=== PATIENT | female | born 1985 | race Caucasian/White ===

== ENCOUNTER 2017-06-02 09:41 | Emergency (ER) | payer MEDICAID ==
[2017-06-02] MEDS ORDERED: Sodium Chloride 0.9% 1,000 ML IV ONE (10:26)
[2017-06-02] MEDS ORDERED: Ondansetron 4 MG/2 ML SDV IVPUSH ONE (10:27)
[2017-06-02] MEDS ORDERED: Ketorolac 30 MG/ML SDV IVPUSH ONE (10:27)
[2017-06-02] MEDS ORDERED: NS + KCl 20mEq/L 1,000 ML IV SCH (11:00)
[2017-06-02] MEDS ORDERED: Acetaminophen/HYDROcodone 325-5 MG Tab PO ONE (12:23)
[2017-06-02 12:39] VITALS: BP 116/62
--- NOTE | 2017-06-05 14:00 | ER ---
DATE SEEN: 06/02/2017 HISTORY OF PRESENT ILLNESS: This 31-year-old single, 6 (the patient is now, therefore, 7), para 5-1-0-5, last menstrual period 02/2017; had onset of a 3-day history of right midaxillary line 8/10 pain and right mid lateral abdominal discomfort, nonradiating to the shoulder or midepigastrium or other quadrants with associated history of feeling "dehydrated". She is experiencing intermittent diaphoresis and mild nausea and anorexia. She did eat a meal last night, small amounts, (a few bites of fried chicken), and also had yesterday's morning meal of eggs and potatoes that were fried. None of the fried foods caused abdominal discomfort. She denies fever, chills, cough, upper respiratory infection, sore throat, chest pain, diarrhea, constipation, blood in the stool, black tarry stools, frequency, urgency, or dysuria. She is sexually active and does not use contraception for protection. PAST MEDICAL HISTORY: No surgery. Previous diagnosis of interstitial cystitis. MEDICATIONS: She uses: 1. Ibuprofen. 2. Tylenol. ALLERGIES: Tramadol. SOCIAL HISTORY: Nonsmoker. Does not drink alcohol. She has a 4-month-old child at home, whom she carries mostly with left arm and left side of her body. She avoids carrying on the right side because of discomfort she experiences on the right side with any activity. She notes that she has not had trauma or unusual twisting, turning, exertion, or physical activities that could have caused muscle strain to the anterior abdomen. No history of falls. She also notes she has had a mild headache when she lies down. She has been lying in bed for the last 3 days. She denies influenza symptoms. REVIEW OF SYSTEMS: HEENT: Mild headache noted (she attributes this to lying in bed for 3 days) and also being slightly dehydrated. She highlights the fact that she feels she is dehydrated. Denies visual problems. Denies swallowing problems. Denies sore throat. No sinusitis. CARDIORESPIRATORY: Denies shortness of breath or cough, chest pain, irregular heartbeat, or lightheadedness. GI: As noted above. MUSCULOSKELETAL: Denies arthritis or joint pain, but she has had mild myalgia over the last 3 days. : Denies frequency, urgency, or dysuria. Last menstrual period was in February of 2017. NEUROLOGIC: Negative. PSYCH: Negative. PHYSICAL EXAMINATION: VITAL SIGNS: Blood pressure 122/65, heart rate 120, respirations 18, oxygen saturation 100%, and temperature is 36.4 degrees centigrade. The patient is 68.03 kg, 1.7 meters with a BMI of 27.4 kg/m2. CONSTITUTIONAL: The patient is alert, mildly overweight, in moderate distress, (she has 8/10 discomfort). HEENT: PERRLA intact. Pharynx without abnormality. NECK: No thyromegaly or mass in the neck. No cervical adenopathy. LUNGS: Clear to auscultation without rales, rhonchi, wheezes, or compromised respiration. CHEST: Chest wall nontender to palpation. HEART: S1, S2. No murmur. She has a sinus tachycardia. ABDOMEN: Soft with mild midabdominal guarding from the midclavicular line to the right anterior axillary line and especially uncomfortable - she points to the right midaxillary line flank and states her pain is "right here." Mild right-sided CVA discomfort with percussion. Pressure on other quadrants causes pain in the right middle lateral abdomen. She is without hernias, umbilical or inguinal, on palpation. EXTREMITIES: Without abnormality. Mild muscle discomfort with palpation. Deep tendon reflexes normoactive. NEUROLOGIC: Cranial nerves 2 through 12 intact. Oriented x3. Gait appropriate. Strength appropriate. Speech appropriate. Thought content appropriate. PSYCH: Negative. PELVIS: Pelvic exam performed with nurse in the room. Uterus is small and not enlarged. I am unable to clearly feel the fundus of uterus, but it is 6 to 8 cm size. Adnexa without palpable abnormality. RECTAL: Not performed. IMAGING: A quick-look ultrasound, uterus is empty. No evidence for fetoplacental unit. LABORATORY DATA: Urine: White count 14,400, PMNs 83, bands 3, lymphocytes 7. Hemoglobin 13.4. CMP: Sodium 137, potassium low at 2.7, chloride 103, CO2 of 21, BUN 10, and creatinine 0.8. BUN to creatinine ratio 12.5. Glucose 144. ALT slightly elevated at 55, alkaline phosphatase 164, albumin low at 2.6, protein 7.1. Urinalysis: Specific gravity 1.010, moderate occult blood, large leukocyte esterase, 5-10 rbc's, 40-50 wbc's, squamous cells few, many bacteria. HCG is positive. ASSESSMENT: 1. . 2. Etiology of the patient's pain, rule out ectopic , since quick- look ultrasound did not demonstrate any intrauterine fetoplacental unit. 3. Rule out renal stone. With the microhematuria, flank pain, and a history of renal stones, there possibly may be a renal stone on the right side. 4. Hypokalemia, etiology indeterminate. 5. Etiology of the patient's diaphoresis, perhaps dehydrated. The tachycardia has relented with flush of fluids, so it is very likely this is secondary to dehydration and her diaphoresis may be from same. 6. She has bandemia and neutrophilic leukocytosis. Also, appendicitis is possible, but it would be retrocecal, since it is so high, doubt this is appendicitis. 7. Mildly overweight. 8. Multiparous, 7, para 5-1-0-5 (possible ectopic presently). PLAN: The patient wants to go home to take care of her children at home and then come back for the ultrasound. The ultrasound has been scheduled for 0330 hours. She had been dismissed. Initially, she had received 300 mL of normal saline with 20 mEq of potassium chloride with the hope that she would have the entire infusion for potassium replacement but, at this point, she prefers to go home and then is willing to come back and have the procedure. She will be stopping back at the emergency room after she has completed the ultrasound to be informed of the results of the ultrasound and also consider further either surgical or medical management. She will need potassium chloride also and pain medicine, she received one tablet of hydrocodone. She noted she had hydrocodone with her previous , when she had the renal stone, and she was appreciative of having this, since she has moderate pain presently. Her pain would be very suggestive of renal stone; however she may have concurrent diagnosis of renal stone with hematuria, also has suggestion of urinary tract infection with leukocyte esterase positive. She may also have concurrent and also included in the diagnosis, but somewhat remote differential diagnosis of appendicitis. The patient was seen at about 6 to 8 minutes after arrival. /[id number] LS/MODL ADDENDUM: HISTORY: Catmagdalena's ultrasound came back at about 1730 hours (the patient went home, had something to eat, and came back). She was noted to have; the gallbladder was full of stones. The wall was thin - shrub grower noted and could not validate if this was cholecystitis because she had eaten something in the interval before coming back. Unfortunately, I had not told her not to eat anything, and she ate something. INTERVAL DIAGNOSES: 1. Urinary tract infection. Has bacteruria, many; some soiling. Treat expectantly for urinary tract infection with Keflex 500 mg one t.i.d., 15 tablets (she should be able to get by with at least 3 days of therapy, and this will give her 5 days of therapy). 2. Cholelithiasis (difficult to rule out cholecystitis, as she has had gallbladder contraction with her eating food before she had the ultrasound study). 3. Six weeks , intrauterine . PLAN: 1. Follow up with her doctor in a week. 2. See a surgeon, so the surgeon can follow her status during the , if needed. 3. To start Keflex 500 mg t.i.d., 15 tablets, for urinary tract infection. 4. She is given 12 tablets of Vicodin 1 tablet q.4 hours p.r.n. pain. She had this with previous because she had a kidney stone. 5. There is no evidence for renal stones on this study that was performed and completed approximately 15 minutes ago. /[id number] NICOLÁS/JOHAN
--- NOTE | 2017-06-05 15:15 | US ---
INDICATION: Ectopic right mid abdomen, positive test. ED quick look negative ultrasound uterus, question ectopic. Costovertebral angle percussion pain, previous history of renal stones. ABDOMEN ULTRASOUND COMPLETE: Multiple ultrasonic images revealed multiple calculi in the gallbladder. The gallbladder was not enlarged, measuring approximately 6.4 cm. No definite wall thickening is seen, although there is a slightly double wall appearance. This could represent a mild degree of chronic cholecystitis, but should be correlated clinically. There is a negative ultrasonic Arce sign noted. Calculi were mobile. No pericholecystic fluid was seen. The common bile duct was normal in caliber. Small echogenic focus at the posterior dome of the liver at the diaphragm, measuring 1.2 cm is noted, most likely representing hemangioma. No other liver lesions were suggested. Liver density appeared to be normal. The IVC was phasic. The pancreas appeared normal, as visualized, although not well seen in the area of the tail. The abdominal aorta was normal in caliber. No definite calculi were noted in the kidneys. No mass lesions were seen. On the right in the upper and mid pole area, the cortex is relatively echogenic , raising question of a process - possibly pyelonephritis in that area. This should be correlated clinically. Otherwise, the kidneys appeared unremarkable with no evidence of obstructive uropathy. The spleen measured 10.3 x 11.5 cm and was unremarkable. The right kidney measured 13.8 x 4.7 x 5.9 cm. The left kidney measured 13.4 x 4.6 x 5.8 cm. The urinary bladder was not fully distended. The wall of the urinary bladder may be somewhat thickened, raising question of cystitis. No organomegaly, mass lesions, or free fluid collections were suggested. IMPRESSION: 1. Cholelithiasis with question of a mild degree of chronic cholecystitis - correlate clinically. 2. Tiny probable hemangioma right lobe of the liver. 3. Cannot exclude the possibility of medical renal disease upper pole/mid pole area right kidney - possible pyelonephritis. 4. Somewhat thickened wall of the urinary bladder is suggested, raising question of cystitis. MTDD
--- NOTE | 2017-06-05 16:25 | US ---
INDICATION: Right lower quadrant pain, positive test, question ectopic. Need better visualization with transvaginal probe. TRANSVAGINAL PELVIC ULTRASOUND: Utilizing transvaginal probe, multiple ultrasonic images were obtained 06/02/2017. No recent comparison was available. There is an intrauterine gestation with a yolk sac visualized and an apparent pole. heart motion was suggested and documented on cine-loop with a heart rate of approximately 99 BPM suggested. [place] rump length was compatible with 5 weeks 6 days gestational age, which is markedly behind a given LMP GA of 12 weeks. ARIES by ultrasound is 01/27/2018. No adnexal mass lesions or free fluid collections were identified. The right ovary measured 2.97 x 2.5 x 1.7 cm. The left ovary measured 2.8 x 2 x 3.7 cm. Follicles are noted at the right ovary. Follicles and a 2-cm probable corpus luteum cyst are noted at the left ovary. IMPRESSION: Likely a normal IUP, very early, at 5 weeks 6 days by ultrasound, for an ARIES of 01/27/2018. Follow-up is recommended in the absence of a definite LMP. MTDD
== END 2017-06-02 12:46 | disposition home or self-care (01) ==
LOC: FB.ED 09:41
DX: O23.41 Unspecified infection of urinary tract in pregnancy, first trimester (principal); B96.89 Other specified bacterial agents as the cause of diseases classified elsewhere; K80.20 Calculus of gallbladder without cholecystitis without obstruction; O99.611 Diseases of the digestive system complicating pregnancy, first trimester; Z3A.01 Less than 8 weeks gestation of pregnancy; O99.111 Other diseases of the blood and blood-forming organs and certain disorders involving the immune mechanism complicating pregnancy, first trimester; D72.825 Bandemia; E66.3 Overweight; R51 Headache; E87.6 Hypokalemia; Z88.5 Allergy status to narcotic agent
CPT/HCPCS: 76700; 76817; 80053; 81001; 81025; 85025; 96361; 96365; 96375; 99284; A9270; J1885; J2405; J3480; J7040

== ENCOUNTER 2017-07-27 15:28 | Emergency (ER) | payer SELFPAY ==
[2017-07-27] MEDS ORDERED: Ondansetron 4 MG/2 ML SDV IVPUSH ONE (15:33)
[2017-07-27] MEDS ORDERED: Sodium Chloride 0.9% 1,000 ML IV ONE (15:33)
--- NOTE | 2017-07-27 15:39 | EDM.PDOCBH ---
ED HPI GENERAL MEDICAL PROBLEM - General Stated Complaint: SUICIDAL Time Seen by Provider: 07/27/17 15:28 Source of Information: Reports: Patient, EMS, Family (sister arrived) History Limitations: Reports: Uncooperative - History of Present Illness INITIAL COMMENTS - FREE TEXT/NARRATIVE: 31 y.o.w.sheila came to the ED by EMS 1 hour after she took obviously antifreeze and possible other substances. She told her boyfriend she took the substances who called 911. As the patient arrived here in the ed, she was not cooperative. BP 123/89 Pulse 62 RR 18 Pulse ox 98% on RA. Denied C/P, requested water, however. After a while, she said to the nurse she took some antifreeze but spit it out right away. Another time she said, she made the Antifreeze thing" but was "shooting" some drugs. Onset Date: 07/27/17 Onset Time: 14:00 Duration: Hour(s):, Waxing/Waning Location: Reports: Generalized Quality: Reports: Other (nausea, thursty) Improves with: Reports: None Worsens with: Reports: None Context: Reports: Other (Possible Antfreez intake) Associated Symptoms: Reports: No Other Symptoms - Related Data Allergies Allergy/AdvReac Type Severity Reaction Status Date / Time tramadol Allergy Nausea Verified 07/27/17 15:40 Home Meds: Home Meds Ibuprofen [IJD: Ibuprofen] 800 mg PO Q8H PRN #0 tablet 11/25/15 [Rx] Acetaminophen [Tylenol] 1,000 mg PO DAILY PRN 06/02/17 [History] Ciprofloxacin HCl [Cipro] 500 mg PO BID #20 tablet 07/27/17 [Rx] Past Medical History - Past Health History Medical/Surgical History: Denies Medical/Surgical History HEENT History: Reports: Impaired Vision Genitourinary History: Reports: Renal Calculus 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: Psychiatric History: Reports: Other (See Below) Other Psychiatric History: HYPOCHONDRIAC - Infectious Disease History Infectious Disease History: Reports: Chicken Pox Social & Family History - Family History Family Medical History: Noncontributory HEENT: Reports: None Cardiac: Reports: None Immunologic: Reports: None Oncologic: Reports: None - Tobacco Use Smoking Status *Q: Current Every Day Smoker Years of Tobacco use: 10 Packs/Tins Daily: 0.2 Used Tobacco, but Quit: No Month Tobacco Last Used: feb Second Hand Smoke Exposure: Yes - Caffeine Use Caffeine Use: Reports: Coffee, Soda - Alcohol Use Days Per Week of Alcohol Use: 0 - Recreational Drug Use Recreational Drug Use: No ED ROS GENERAL - Review of Systems Review Of Systems: Unable To Obtain (uncooperative) ED EXAM, BEHAVIORAL HEALTH - Physical Exam Exam: See Below Exam Limited By: Uncooperative General Appearance: Alert, WD/WN, No Apparent Distress Eye Exam: Bilateral Eye: Normal Inspection Ears: Normal External Exam Nose: Normal Inspection Throat/Mouth: Other (dry mucosal mmebrane) Head: Atraumatic, Normocephalic Neck: Normal Inspection, Supple, Non-Tender Respiratory/Chest: No Respiratory Distress, Lungs Clear, Normal Breath Sounds Cardiovascular: Normal Peripheral Pulses, Regular Rate, Rhythm, No Edema, No Gallop GI/Abdominal: Normal Bowel Sounds, Tender (epigastric tenderness) (Female) Exam: Deferred Rectal (Female) Exam: Deferred Back Exam: Normal Inspection, Full Range of Motion Extremities: Normal Inspection, Normal Range of Motion, Non-Tender, No Pedal Edema, Normal Capillary Refill Neurological: Alert, Normal Mood/Affect, CN II-XII Intact, Normal Cognition, No Motor/Sensory Deficits Psychiatric: Alert, Depressed Mood Skin Exam: Warm, Dry, Normal color, No rash EKG INTERPRETATION EKG Date: 07/27/17 Time: 15:55 Rhythm: NSR Rate (Beats/Min): 77 [place]: Normal P-Wave: Present QRS: Normal ST-T: Normal QT: Normal Comparison: NA - No Prior EKG COURSE, BEHAVIORAL HEALTH COMP - Course Vital Signs: Last Vital Signs Temp 36.2 C 07/27/17 15:30 Pulse 87 07/27/17 15:30 Resp 18 07/27/17 15:30 BP 140/89 07/27/17 15:30 Pulse Ox 100 07/27/17 15:30 31 y.o.w.sheila came to the ED by EMS 1 hour after she took obviously antifreeze and possible other substances. She told her boyfriend she took the substances who called 911. As the patient arrived here in the ed, she was not cooperative. BP 123/89 Pulse 62 RR 18 Pulse ox 98% on RA. Denied C/P, requested water, however. After a while, she said to the nurse she took some antifreeze but spit it out right away. Another time she said, she made up the Antifreeze thing" but was "shooting" some drugs. PE: Uncooperative 31 y.o.w.F with nl vital, Nausea, epigatric tenderness Labs: UDS pos for Amphetamines and MDMA, WBC nl BMP ll VBG pH 7.44 VBK pCO2 28 VBG HCO2 19.5 EKG: NSR Impression: Possible Anitfreeze OD by History, Dehydration, UDA pos for Amphetamines, gastritis. Tx: Zofran, NS, Protonix. 4.37 pm Consultation: Dr. Hardin, Printing Specialist: Antifreeze intake appear unlikely, given the present lab and clinical issues. UDS was pending. She will accept the for further care. Poison Contral requested a Methanol and Ethylenglycol level to be drawn and to be sent to [facility], which discussed with Dr. Hardin as well. Reexam: Pt improved, still not cooperative. Pt was put on Transport Hold at about 1700 11/24/2017 Plan: Transfer to [place] ICU Orders, Labs, Meds: Active Orders 24 hr Category Date Time Status EKG Documentation Completion [RC] ASDIRECTED Care 07/27/17 15:37 Active Saline Lock Insert [OM.PC] Routine Oth 07/27/17 15:58 Ordered EKG 12 Lead [EK] Routine Ther 07/27/17 15:37 Ordered Laboratory Tests 07/27/17 07/27/17 07/27/17 Range/Units 15:38 15:38 15:38 WBC 7.6 (4.5-12.0) X10-3/uL RBC 5.13 (3.23-5.20) x10(6)uL Hgb 13.4 (11.5-15.5) g/dL Hct 39.6 (30.0-51.3) % MCV 77.0 L (80-96) fL MCH 26.2 L (27.7-33.6) pg MCHC 34.0 (32.2-35.4) g/dL RDW 16.9 H (11.5-15.5) % Plt Count 285 (125-369) X10(3)uL MPV 9.3 (7.4-10.4) fL Neut % (Auto) 56.1 (46-82) % Lymph % (Auto) 33.4 (13-37) % [place] % (Auto) 8.8 (4-12) % Eos % (Auto) 1 (1.0-5.0) % Baso % (Auto) 0 (0-2) % Neut # (Auto) 4.3 (1.6-8.3) # Lymph # (Auto) 2.5 (0.6-5.0) # [place] # (Auto) 0.7 (0.0-1.3) # Eos # (Auto) 0.1 (0.0-0.8) # Baso # (Auto) 0.0 (0.0-0.2) # POC VBG pH (7.31-7.41) POC VBG pCO2 (41-51) mmHG POC VBG HCO3 (23-28) mmol/L POC VBG Total CO2 (24-29) mmol/L POC VBG Base Excess (-2-3) mmol/L Sodium 141 (135-145) mmol/L Potassium 3.6 (3.5-5.3) mmol/L Chloride 103 (100-110) mmol/L Carbon Dioxide 28 (21-32) mmol/L BUN 12 (7-18) mg/dL Creatinine 1.0 (0.55-1.02) mg/dL Est Cr Clr Drug Dosing TNP Estimated GFR (MDRD) > 60 (>60) BUN/Creatinine Ratio 12.0 (9-20) Glucose 97 (80-116) mg/dL Lactic Acid 0.5 (0.4-2.2) mmol/L Calcium 9.6 (8.6-10.2) mg/dL Magnesium 1.9 (1.8-2.5) mg/dL Creatine Kinase 80 (60-160) IU/L Troponin I (<0.017-0.056) ng/mL TSH, Ultra Sensitive (0.36-3.74) IU/mL Urine Color (YELLOW) Urine Appearance (CLEAR) Urine pH (5.0-6.5) Ur Specific [place] (1.010-1.025) Urine Protein (NEGATIVE) mg/dL Urine Glucose (UA) (NEGATIVE) mg/dL Urine Ketones (NEGATIVE) mg/dL Urine Occult Blood (NEGATIVE) Urine Nitrite (NEGATIVE) Urine Bilirubin (NEGATIVE) Urine Urobilinogen (NEGATIVE) mg/dL Ur Leukocyte Esterase (NEGATIVE) Urine RBC (0) Urine WBC (0) Ur Squamous Epith Cells (NS,R,O) Urine Bacteria (NS) Urine Mucus (NS) Urine HCG, Qual (NEGATIVE) Salicylates 5.1 (2.8-20.0) mg/dL Urine Opiates Screen (NEGATIVE) Ur Oxycodone Screen (NEGATIVE) Ur Propoxyphene Screen (NEGATIVE) Acetaminophen < 2 L (10-30) ug/mL Ur Barbituates Screen (NEGATIVE) Ur Tricyclics Screen (NEGATIVE) Ur Phencyclidine Scrn (NEGATIVE) Ur Amphetamine Screen (NEGATIVE) Urine MDMA Screen (NEGATIVE) U Benzodiazepines Scrn (NEGATIVE) U Cocaine Metab Screen (NEGATIVE) U Marijuana (THC) Screen (NEGATIVE) Ethyl Alcohol (<0.03) % 07/27/17 07/27/17 07/27/17 Range/Units 15:38 16:00 16:24 WBC (4.5-12.0) X10-3/uL RBC (3.23-5.20) x10(6)uL Hgb (11.5-15.5) g/dL Hct (30.0-51.3) % MCV (80-96) fL MCH (27.7-33.6) pg MCHC (32.2-35.4) g/dL RDW (11.5-15.5) % Plt Count (125-369) X10(3)uL MPV (7.4-10.4) fL Neut % (Auto) (46-82) % Lymph % (Auto) (13-37) % [place] % (Auto) (4-12) % Eos % (Auto) (1.0-5.0) % Baso % (Auto) (0-2) % Neut # (Auto) (1.6-8.3) # Lymph # (Auto) (0.6-5.0) # [place] # (Auto) (0.0-1.3) # Eos # (Auto) (0.0-0.8) # Baso # (Auto) (0.0-0.2) # POC VBG pH 7.44 H (7.31-7.41) POC VBG pCO2 28.8 L (41-51) mmHG POC VBG HCO3 19.5 L (23-28) mmol/L POC VBG Total CO2 20 L (24-29) mmol/L POC VBG Base Excess -5 L (-2-3) mmol/L Sodium (135-145) mmol/L Potassium (3.5-5.3) mmol/L Chloride (100-110) mmol/L Carbon Dioxide (21-32) mmol/L BUN (7-18) mg/dL Creatinine (0.55-1.02) mg/dL Est Cr Clr Drug Dosing Estimated GFR (MDRD) (>60) BUN/Creatinine Ratio (9-20) Glucose (80-116) mg/dL Lactic Acid (0.4-2.2) mmol/L Calcium (8.6-10.2) mg/dL Magnesium (1.8-2.5) mg/dL Creatine Kinase (60-160) IU/L Troponin I < 0.017 L (<0.017-0.056) ng/mL TSH, Ultra Sensitive 1.11 (0.36-3.74) IU/mL Urine Color (YELLOW) Urine Appearance (CLEAR) Urine pH (5.0-6.5) Ur Specific [place] (1.010-1.025) Urine Protein (NEGATIVE) mg/dL Urine Glucose (UA) (NEGATIVE) mg/dL Urine Ketones (NEGATIVE) mg/dL Urine Occult Blood (NEGATIVE) Urine Nitrite (NEGATIVE) Urine Bilirubin (NEGATIVE) Urine Urobilinogen (NEGATIVE) mg/dL Ur Leukocyte Esterase (NEGATIVE) Urine RBC (0) Urine WBC (0) Ur Squamous Epith Cells (NS,R,O) Urine Bacteria (NS) Urine Mucus (NS) Urine HCG, Qual Negative (NEGATIVE) Salicylates (2.8-20.0) mg/dL Urine Opiates Screen (NEGATIVE) Ur Oxycodone Screen (NEGATIVE) Ur Propoxyphene Screen (NEGATIVE) Acetaminophen (10-30) ug/mL Ur Barbituates Screen (NEGATIVE) Ur Tricyclics Screen (NEGATIVE) Ur Phencyclidine Scrn (NEGATIVE) Ur Amphetamine Screen (NEGATIVE) Urine MDMA Screen (NEGATIVE) U Benzodiazepines Scrn (NEGATIVE) U Cocaine Metab Screen (NEGATIVE) U Marijuana (THC) Screen (NEGATIVE) Ethyl Alcohol < 0.03 (<0.03) % 07/27/17 07/27/17 Range/Units 16:24 16:24 WBC (4.5-12.0) X10-3/uL RBC (3.23-5.20) x10(6)uL Hgb (11.5-15.5) g/dL Hct (30.0-51.3) % MCV (80-96) fL MCH (27.7-33.6) pg MCHC (32.2-35.4) g/dL RDW (11.5-15.5) % Plt Count (125-369) X10(3)uL MPV (7.4-10.4) fL Neut % (Auto) (46-82) % Lymph % (Auto) (13-37) % [place] % (Auto) (4-12) % Eos % (Auto) (1.0-5.0) % Baso % (Auto) (0-2) % Neut # (Auto) (1.6-8.3) # Lymph # (Auto) (0.6-5.0) # [place] # (Auto) (0.0-1.3) # Eos # (Auto) (0.0-0.8) # Baso # (Auto) (0.0-0.2) # POC VBG pH (7.31-7.41) POC VBG pCO2 (41-51) mmHG POC VBG HCO3 (23-28) mmol/L POC VBG Total CO2 (24-29) mmol/L POC VBG Base Excess (-2-3) mmol/L Sodium (135-145) mmol/L Potassium (3.5-5.3) mmol/L Chloride (100-110) mmol/L Carbon Dioxide (21-32) mmol/L BUN (7-18) mg/dL Creatinine (0.55-1.02) mg/dL Est Cr Clr Drug Dosing Estimated GFR (MDRD) (>60) BUN/Creatinine Ratio (9-20) Glucose (80-116) mg/dL Lactic Acid (0.4-2.2) mmol/L Calcium (8.6-10.2) mg/dL Magnesium (1.8-2.5) mg/dL Creatine Kinase (60-160) IU/L Troponin I (<0.017-0.056) ng/mL TSH, Ultra Sensitive (0.36-3.74) IU/mL Urine Color Yellow (YELLOW) Urine Appearance Cloudy (CLEAR) Urine pH 6.5 (5.0-6.5) Ur Specific [place] 1.020 (1.010-1.025) Urine Protein Negative (NEGATIVE) mg/dL Urine Glucose (UA) Normal (NEGATIVE) mg/dL Urine Ketones Negative (NEGATIVE) mg/dL Urine Occult Blood Negative (NEGATIVE) Urine Nitrite Positive H (NEGATIVE) Urine Bilirubin Negative (NEGATIVE) Urine Urobilinogen Normal (NEGATIVE) mg/dL Ur Leukocyte Esterase Negative (NEGATIVE) Urine RBC 0-5 (0) Urine WBC 0-5 (0) Ur Squamous Epith Cells Few H (NS,R,O) Urine Bacteria Many H (NS) Urine Mucus Few H (NS) Urine HCG, Qual (NEGATIVE) Salicylates (2.8-20.0) mg/dL Urine Opiates Screen Negative (NEGATIVE) Ur Oxycodone Screen Negative (NEGATIVE) Ur Propoxyphene Screen Negative (NEGATIVE) Acetaminophen (10-30) ug/mL Ur Barbituates Screen Negative (NEGATIVE) Ur Tricyclics Screen Negative (NEGATIVE) Ur Phencyclidine Scrn Negative (NEGATIVE) Ur Amphetamine Screen Positive H (NEGATIVE) Urine MDMA Screen Positive H (NEGATIVE) U Benzodiazepines Scrn Negative (NEGATIVE) U Cocaine Metab Screen Negative (NEGATIVE) U Marijuana (THC) Screen Negative (NEGATIVE) Ethyl Alcohol (<0.03) % Medications Discontinued Medications Generic Name Dose Route Start Last Admin Trade Name Freq PRN Reason Stop Dose Admin Sodium Chloride 1,000 mls @ 999 mls/hr 07/27/17 15:33 07/27/17 15:48 Normal Saline IV 07/27/17 16:33 999 mls/hr .BOLUS ONE Administration Ondansetron HCl 8 mg 07/27/17 15:33 07/27/17 15:45 Zofran IVPUSH 07/27/17 15:34 8 mg ONETIME ONE Administration Pantoprazole Sodium 40 mg 07/27/17 15:43 07/27/17 16:05 Protonix Iv IVPUSH 07/27/17 15:44 40 mg ONETIME ONE Administration Sodium Chloride 10 ml 07/27/17 15:58 07/27/17 16:08 Saline Flush FLUSH 10 ml ASDIRECTED PRN Administration Keep Vein Open Departure - Departure Time of Disposition: 17:41 Disposition: DC/Tfer to Acute Hospital 02 Condition: Fair Clinical Impression: Poisoning, antifreeze Qualifiers: Encounter type: initial encounter Injury intent: undetermined intent Qualified Code(s): T65.94XA - Toxic effect of unspecified substance, undetermined, initial encounter - Discharge Information Prescriptions: Ciprofloxacin HCl [Cipro] 500 mg PO BID #20 tablet Referrals: PCP,None [Primary Care Provider] - Forms: ED Department Discharge - My Orders Last 24 Hours: My Active Orders 07/27/17 15:37 EKG Documentation Completion [RC] ASDIRECTED EKG 12 Lead [EK] Routine 07/27/17 15:58 Saline Lock Insert [OM.PC] Routine - Assessment/Plan Last 24 Hours: My Active Orders 07/27/17 15:37 EKG Documentation Completion [RC] ASDIRECTED EKG 12 Lead [EK] Routine 07/27/17 15:58 Saline Lock Insert [OM.PC] Routine
[2017-07-27] MEDS ORDERED: Pantoprazole 40 MG Vial IVPUSH ONE (15:43)
[2017-07-27] MEDS ORDERED: Sodium Chloride 0.9% 10 ML Syringe FLUSH PRN (15:58)
[2017-07-27 16:14] LABS: ACETAMINOPHEN < 2 ug/mL (10-30)
[2017-07-27 18:11] VITALS: BP 140/89
== END 2017-07-27 17:28 ==
LOC: FB.ED 15:28
DX: T65.894A Toxic effect of other specified substances, undetermined, initial encounter (principal); E86.0 Dehydration; K29.70 Gastritis, unspecified, without bleeding; F17.210 Nicotine dependence, cigarettes, uncomplicated; Z88.5 Allergy status to narcotic agent; Z79.899 Other long term (current) drug therapy
CPT/HCPCS: 36415; 80048; 80305; 81001; 81025; 82550; 82803; 83605; 83735; 84443; 84484; 85025; 93005; 96361; 96374; 96375; 99285; C9113; G0480; J2405; J7040; J7050; 93010; J7030